=== PATIENT | female | born 1950 | race Caucasian/White ===

== ENCOUNTER 2024-10-20 07:04 | Emergency (ER) | payer OTHER ==
[~2024-10-20] VITALS: Ht 162.6 cm; Wt 59.0 kg
[2024-10-20] MEDS ORDERED: ONDANSETRON 4 MG/2 ML VIAL ONE ×2 (07:16→20:31)
[2024-10-20] MEDS ORDERED: KETOROLAC TROMETHAMINE 30 MG INJ ONE (07:16)
[2024-10-20] MEDS ORDERED: HYDROMORPHONE 2 MG/1 ML DISP.SYRIN ONE ×3 (07:16→16:22)
[2024-10-20] MEDS: ONDANSETRON 4 MG/2 ML VIAL IV ONE ×2 (07:20→20:15)
[2024-10-20] MEDS: HYDROMORPHONE 1 MG/1 ML DISP.SYRIN IV ONE ×4 (07:20→20:15)
[2024-10-20] MEDS: IV NORMAL SALINE 1000 ML BAG IV ONE (07:21)
[2024-10-20] MEDS: KETOROLAC TROMETHAMINE 15 MG INJ IVP ONE (07:21)
[2024-10-20 07:49] LABS: BASOPHILS % (AUTO) 0.4 % (0.0-2.0); EOSINOPHILS % (AUTO) 0.1 % (0.0-7.0); HEMATOCRIT 42.5 % (31.2-41.9); HEMOGLOBIN 14.2 g/dL (10.9-14.3); LYMPHOCYTES # (AUTO) 0.4 K/uL (0.8-4.8); LYMPHOCYTES % (AUTO) 3.1 % (20.5-51.5); MEAN CORPUSCULAR HEMOGLOBIN 32.6 uug (24.7-32.8); MEAN CORPUSCULAR HGB CONC 34 g/dL (32.3-35.6); MEAN CORPUSCULAR VOLUME 97.4 fL (75.5-95.3); MONOCYTES # (AUTO) 0.4 K/uL (0.1-1.30); MONOCYTES % (AUTO) 3.2 % (0.0-11.0); NEUTROPHILS # (AUTO) 11.2 K/uL (1.8-8.9); NEUTROPHILS % (AUTO) 93.2 % (38.5-71.5); PLATELET COUNT (AUTO) 205 K/uL (179-408); RED BLOOD CELL COUNT(AUTO) 4.36 MIL/uL (3.63-4.92); RED CELL DISTRIBUTION WIDTH 13.5 % (12.3-17.7)
[2024-10-20 08:05] LABS: DIFFERENTIAL COMMENT 1
[2024-10-20 08:06] LABS: CALCIUM 9.2 mg/dL (8.5-10.1); CARBON DIOXIDE 26 mmol/L (21-32); CHLORIDE 101 mmol/L (98-107); CREATININE 0.7 mg/dL (0.6-1.3); GLUCOSE 352 mg/dL (74-106); POTASSIUM 3.9 mmol/L (3.5-5.1); SODIUM SERUM 138 mmol/L (136-145); UREA NITROGEN, BLOOD 20 mg/dL (7-18)
[2024-10-20] MEDS ORDERED: INSU3INS6 SQ (08:58)
[2024-10-20] MEDS ORDERED: LISI40TA13 PO (08:58)
[2024-10-20] MEDS ORDERED: AMLO2.5T4 PO (08:58)
[2024-10-20] MEDS ORDERED: FLUO20CA42 PO (08:58)
[2024-10-20 19:24] VITALS: O2SAT 94
[2024-10-20] MEDS ORDERED: HYDROMORPHONE 1 MG/1 ML DISP.SYRIN ONE (20:32)
== END 2024-10-20 22:23 ==
LOC: ER 07:04
DX: S72.091A Other fracture of head and neck of right femur, initial encounter for closed fracture (principal); E11.9 Type 2 diabetes mellitus without complications; M25.551 Pain in right hip; R06.00 Dyspnea, unspecified; R42 Dizziness and giddiness; R51.9 Headache, unspecified; Z79.4 Long term (current) use of insulin; Z79.899 Other long term (current) drug therapy; Z88.1 Allergy status to other antibiotic agents; Z96.641 Presence of right artificial hip joint; Z20.822 Contact with and (suspected) exposure to COVID-19; W01.0XXA Fall on same level from slipping, tripping and stumbling without subsequent striking against object, initial encounter; Y93.89 Activity, other specified; Y92.89 Other specified places as the place of occurrence of the external cause; Y99.8 Other external cause status
CPT/HCPCS: 36415; 70450; 71045; 73502; 85025; 85730; 86850; 86900; 86901; A4606; A4663; J1171; J1885; J2405; J7040